=== PATIENT | female | born 1980 | race Caucasian/White ===

== ENCOUNTER 2023-01-09 05:51 | Day surgery (SDC) | payer OTHER, SELFPAY ==
[2023-01-07 15:16] VITALS: BMI 24.3
[2023-01-09] MEDS ORDERED: Gentamicin 80 MG/2 ML VIAL ONE (06:21)
[2023-01-09] MEDS ORDERED: Methylene Blue 50 MG/10 ML AMPUL ONE (06:21)
[2023-01-09] MEDS ORDERED: Bupivacaine HCl 0.5%/Epinephrine 1:200,000/PF 30 ml Vial ONE (06:21)
[2023-01-09] MEDS ORDERED: Neomycin-Polymyxin 1 ML AMP ONE (06:21)
[2023-01-09] MEDS ORDERED: CEFAZOLIN 2 GM VIAL ONE (06:56)
[2023-01-09] MEDS ORDERED: SUGAMMADEX SODIUM 200 MG/2 ML VIAL ONE (06:58)
[2023-01-09] MEDS ORDERED: HYDROmorphone 0.5 MG/0.5 ML SYRINGE ONE (06:59)
[2023-01-09] MEDS ORDERED: Propofol 1,000 MG/100 ML VIAL IV ONE (06:59)
[2023-01-09] MEDS ORDERED: Dexamethasone 4 mg/ml Vial ONE (07:04)
[2023-01-09] MEDS ORDERED: Ondansetron PF 4 MG/2 ML Vial ONE ×2 (07:04→11:26)
[2023-01-09] MEDS ORDERED: Esmolol 100 MG/10 ML VIAL ONE (07:04)
[2023-01-09] MEDS ORDERED: Midazolam HCl 2 mg/2 ml Vial ONE (07:04)
[2023-01-09] MEDS ORDERED: Rocuronium Bromide 10 MG/ML (10ML VIAL) ONE (07:04)
[2023-01-09] MEDS ORDERED: Lidocaine 1% PF 5 ML VIAL ONE (07:04)
[2023-01-09] MEDS ORDERED: Ketorolac Tromethamine 30 MG/ML VIAL ONE (08:24)
[2023-01-09] MEDS ORDERED: Meperidine HCl/PF 25 MG/ML VIAL ONE (09:56)
[2023-01-09] MEDS ORDERED: HYDROcodone/Acetaminophen 7.5/325 mg Tablet ONE (11:23)
[2023-01-09] MEDS ORDERED: Metoclopramide HCl 10 MG/2 ML VIAL ONE (13:00)
== END 2023-01-09 14:05 | disposition home or self-care (01) ==
LOC: CSHSDC 05:51
PROVIDERS: ATTEND Obstetrics & Gynecology
PROC: 0UT94ZZ Resection of Uterus, Percutaneous Endoscopic Approach (ICD-10-PCS; principal; 2023-01-09)
PROC: 0TSD0ZZ Reposition Urethra, Open Approach (ICD-10-PCS; principal; 2023-01-09)
PROC: 0UT74ZZ Resection of Bilateral Fallopian Tubes, Percutaneous Endoscopic Approach (ICD-10-PCS; principal; 2023-01-09)
DX: N93.9 Abnormal uterine and vaginal bleeding, unspecified (principal); N80.03 Adenomyosis of the uterus; D25.9 Leiomyoma of uterus, unspecified; N80.00 Endometriosis of the uterus, unspecified; N94.6 Dysmenorrhea, unspecified; N94.10 Unspecified dyspareunia; K66.0 Peritoneal adhesions (postprocedural) (postinfection); F32.A Depression, unspecified; R10.2 Pelvic and perineal pain; F41.9 Anxiety disorder, unspecified; Z79.899 Other long term (current) drug therapy
CPT/HCPCS: 36415; 85014; 85018; 88307; C1776; J1100; J1170; J1580; J1885; J2175; J2250; J2405; J2704; J2765; Q9968

== ENCOUNTER 2024-01-05 13:14 | Outpatient (CLI) | payer OTHER | END 2024-01-05 13:15 | disposition home or self-care (01) | LOC: CSHMAMMO 13:14 | PROVIDERS: ATTEND Obstetrics & Gynecology | DX: Z12.31 Encounter for screening mammogram for malignant neoplasm of breast (principal); Z98.82 Breast implant status | CPT/HCPCS: 77063; 77067 ==